=== PATIENT | male | born 1955 | race Two or more races ===

== ENCOUNTER 2024-08-16 06:02 | Inpatient (IN) | payer MEDICARE, MEDICAID ==
[~2024-08-16] VITALS: Ht 195.6 cm; Wt 106.6 kg
[2024-08-16] VITALS (14 sets, daily range): BP systolic 137–163; BP diastolic 77–101; PULSE 78–99; RESP 12–18; TEMP 97.8–98.1; O2SAT 90–99
[~2024-08-16 06:02] MED LIST: AMLO1TAB22 PO; ASPI-543 PO; CHOL50007 PO; CLOP75TA70 PO; LEVO-848 PO; NITR0.4S29 SL; PANT40T PO; SEMA0.25 SC; THIA100T10 PO; ZOLP10TA6 PO; [UNRECOGNIZED DRUG - CODE] SC
[2024-08-16] MEDS: IODIXANOL 320MG/ML 100ML BTL IV ONE ×2 (07:34→08:18)
[2024-08-16] MEDS: HEPARIN IN NS 1000Units/500mL 1,500 ML ONE (07:34)
[2024-08-16 08:12] LABS: Basophils # (auto) 0 10 ^3/uL (0-0.2); Basophils % (auto) 0.5 % (0.0-2.0); Eosinophils # (auto) 0.1 10 ^3/uL (0-0.8); Eosinophils % (auto) 1.2 % (0.0-7.0); Hematocrit 40.7 % (41.0-53.0); Hemoglobin 13.9 g/dL (13.5-17.5); Lymphocytes # (auto) 1.7 10 ^3/uL (0.4-5.4); Lymphocytes % (auto) 23.7 % (10.0-50.0); Mean Corpuscular Hemoglobin 28.1 pg (28.0-32.0); Mean Corpuscular Hgb Conc. 34.2 g/dL (32.0-36.0); Mean Corpuscular Volume 82.3 fL (80.0-100.0); Monocytes # (auto) 0.7 10 ^3/uL (0-1.3); Monocytes % (auto) 9.1 % (0.0-12.0); Neutrophils # (auto) 4.7 10 ^3/uL (1.6-8.6); Neutrophils % (auto) 65.5 % (37.0-80.0); Nucleated Red Blood Cells % 0.2 %; Platelet Count (auto) 140 10^3/uL (140-450); Red Blood Cells 4.95 10^6/uL (4.5-5.90); Red Cell Distribution Width 15.4 % (11.8-14.3); White Blood Cell 7.2 10^3/uL (4.4-10.8)
[2024-08-16 08:29] LABS: Alanine Aminotransferase 20 U/L (7-40); Albumin 4.4 g/dL (3.2-4.8); Alkaline Phosphatase 82 U/L (46-116); Anion Gap 11 (5-15); Aspartate Aminotransferase 27 U/L (13-40); Blood Urea Nitrogen 17 mg/dL (9-23); Calcium 9.3 mg/dL (8.7-10.4); Carbon Dioxide 24 mmol/L (20-31); Chloride 105 mmol/L (98-107); Glucose 136 mg/dL (74-106); Potassium 3.1 mmol/L (3.5-5.1); Sodium 140 mmol/L (136-145)
[2024-08-16 08:30] LABS: Bilirubin, Total 0.8 mg/dL (0.2-1.0); Total Protein 7.4 g/dL (5.7-8.2)
[2024-08-16] MEDS: POTASSIUM CHL 20MEQ/100ML 100 ML IV ONE (09:00)
[2024-08-16] MEDS: HEPARIN SODIUM (PORCINE) 5000 UNITS/ML 1ML VIAL ONE (09:06)
[2024-08-16] MEDS: VERAPAMIL 2.5MG/ML INJ 2ML VIAL IV ONE (09:06)
[2024-08-16] MEDS: ANGIOMAX 250 MG VIAL IV ONE ×3 (09:06→12:20)
[2024-08-16] MEDS: MIDAZOLAM HCL 2MG/2ML 2ml VIAL (1mg/ml) ONE ×3 (09:07→12:30)
[2024-08-16] MEDS: SODIUM CHL 0.9% 0 ML ONE (09:07)
[2024-08-16] MEDS: fentaNYL CITRATE 100 MCG/2 ML VL ONE ×3 (09:07→12:30)
[2024-08-16] MEDS: LIDOCAINE 2%HCL (LOCAL ANESTH.) INJ 20ML MDV ONE ×2 (09:07→12:20)
[2024-08-16] MEDS: ATROPINE SULF 1 MG/10ml SYR ONE (09:59)
[2024-08-16] MEDS: SODIUM CHL 0.9% 50 ML ONE ×2 (10:08→12:20)
[2024-08-16] MEDS: ONDANSETRON HCL 4 MG/2 ML VIAL ONE (10:29)
[2024-08-16] MEDS: CLOPIDOGREL BISULFATE 75 MG TAB ONE ×2 (11:03)
[2024-08-16] MEDS ORDERED: LABETALOL HCL 20 MG/4 ML VL IV PRN (11:30)
[2024-08-16] MEDS ORDERED: MORPHINE SULFATE INJ 2 MG/ml SYRG IV PRN (11:30)
[2024-08-16] MEDS ORDERED: NITROGLYCERIN 0.4 MG SL TAB SL PRN (11:30)
[2024-08-16] MEDS: SODIUM CHLORIDE 0.9% 1,000 ML IV SCH (13:00)
[2024-08-16] MEDS ORDERED: ALPRAZolam 0.5 MG TAB PO PRN (14:30)
[2024-08-16] MEDS: NEOMYCIN-POLYMY-DEXAMETH 0.1% OPTH(EYE) SUSP 5ML LEFTEYE SCH (18:00)
[2024-08-16] MEDS: ATORVASTATIN 20 MG TAB PO SCH (21:28)
[2024-08-16] MEDS: POTASSIUM CHL 20 Meq TABLET PO ONE (23:51)
[2024-08-17] VITALS (9 sets, daily range): BP systolic 128–151; BP diastolic 80–92; PULSE 87–99; RESP 18–20; TEMP 98.2–98.4; O2SAT 92–94
[2024-08-17] MEDS: LEVOTHYROXINE SODIUM 50 MCG TAB PO SCH (05:51)
[2024-08-17 06:09] LABS: Basophils # (auto) 0 10 ^3/uL (0-0.2); Basophils % (auto) 0.3 % (0.0-2.0); Eosinophils # (auto) 0 10 ^3/uL (0-0.8); Eosinophils % (auto) 0.3 % (0.0-7.0); Hematocrit 38.7 % (41.0-53.0); Hemoglobin 13.4 g/dL (13.5-17.5); Lymphocytes # (auto) 1.2 10 ^3/uL (0.4-5.4); Lymphocytes % (auto) 18.1 % (10.0-50.0); Mean Corpuscular Hemoglobin 28.6 pg (28.0-32.0); Mean Corpuscular Hgb Conc. 34.6 g/dL (32.0-36.0); Mean Corpuscular Volume 82.7 fL (80.0-100.0); Monocytes # (auto) 0.6 10 ^3/uL (0-1.3); Monocytes % (auto) 9.1 % (0.0-12.0); Neutrophils # (auto) 4.8 10 ^3/uL (1.6-8.6); Neutrophils % (auto) 72.2 % (37.0-80.0); Nucleated Red Blood Cells % 0.1 %; Platelet Count (auto) 118 10^3/uL (140-450); Red Blood Cells 4.68 10^6/uL (4.5-5.90); Red Cell Distribution Width 15.3 % (11.8-14.3); White Blood Cell 6.6 10^3/uL (4.4-10.8)
[2024-08-17 06:46] LABS: Alanine Aminotransferase 29 U/L (7-40); Alkaline Phosphatase 75 U/L (46-116); Anion Gap 10 (5-15); BUN/Creatinine Ratio 8.5 (10.0-20.0); Blood Urea Nitrogen 10 mg/dL (9-23); Calcium 9.1 mg/dL (8.7-10.4); Carbon Dioxide 26 mmol/L (20-31); Chloride 105 mmol/L (98-107); Glucose 134 mg/dL (74-106); LDL Cholesterol 28 mg/dL (< 100); Magnesium 1.6 mg/dL (1.6-2.6); Potassium 3.2 mmol/L (3.5-5.1); Sodium 141 mmol/L (136-145); Total Protein 6.6 g/dL (5.7-8.2); Triglycerides 176 mg/dL (< 150)
[2024-08-17 06:47] LABS: Albumin 3.9 g/dL (3.2-4.8); Aspartate Aminotransferase 151 U/L (13-40); Bilirubin, Total 0.6 mg/dL (0.2-1.0); Cholesterol 73 mg/dL (< 200); HDL Cholesterol 29 mg/dL (40-59); Phosphorus 2.8 mg/dL (2.4-5.1)
[2024-08-17] MEDS: METOPROLOL TARTRATE 50 MG TAB PO SCH (10:00)
[2024-08-17] MEDS: POTASSIUM CHL 20 Meq TABLET PO SCH (10:21)
[2024-08-17] MEDS: ASPirin 81 mg TAB PO SCH (10:22)
[2024-08-17] MEDS: CLOPIDOGREL BISULFATE 75 MG TAB PO SCH (10:22)
[2024-08-17] MEDS ORDERED: POTASSIUM CHL 20 Meq TABLET PO ONE (12:00)
[2024-08-17] MEDS ORDERED: POTASSIUM CHLORIDE 40 MEQ in SOD CHL 0.45% 1,000 ML IV SCH (13:15)
[2024-08-17] MEDS ORDERED: MAGNESIUM SULFATE 1GM/100ML 100 ML IV SCH (14:00)
[2024-08-17] MEDS ORDERED: POTASSIUM CHLORIDE 20 MEQ, LIDOCAINE 1% (LOCAL ANESTH.) 2 ML in SODIUM CHL 0.9% 100 ML IV ONE (18:00)
== END 2024-08-17 13:15 | disposition home or self-care (01) | DRG 323 ==
LOC: CATH 06:02 → TELE 11:16 → TELE-CENTR 14:40
PROVIDERS: ADMIT Specialist; ATTEND Internal Medicine
PROC: 02F03ZZ Fragmentation in Coronary Artery, One Artery, Percutaneous Approach (ICD-10-PCS; principal; 2024-08-16)
PROC: 027034Z Dilation of Coronary Artery, One Artery with Drug-eluting Intraluminal Device, Percutaneous Approach (ICD-10-PCS; 2024-08-16)
PROC: 03HY32Z Insertion of Monitoring Device into Upper Artery, Percutaneous Approach (ICD-10-PCS; 2024-08-16)
PROC: 4A023N7 Measurement of Cardiac Sampling and Pressure, Left Heart, Percutaneous Approach (ICD-10-PCS; 2024-08-16)
PROC: B211YZZ Fluoroscopy of Multiple Coronary Arteries using Other Contrast (ICD-10-PCS; 2024-08-16)
DX: I25.10 Atherosclerotic heart disease of native coronary artery without angina pectoris (principal); N17.0 Acute kidney failure with tubular necrosis; I10 Essential (primary) hypertension; E11.9 Type 2 diabetes mellitus without complications; E78.5 Hyperlipidemia, unspecified; Z82.49 Family history of ischemic heart disease and other diseases of the circulatory system; Z95.5 Presence of coronary angioplasty implant and graft
CPT/HCPCS: 36415; 71045; 80053; 80061; 83735; 84100; 84443; 85025; 92928; 92978; 93458; 99152; G0378; J2003; J2250; J2405; Q9967

== ENCOUNTER 2024-11-15 06:27 | Inpatient (IN) | payer MEDICARE, MEDICAID ==
[2024-11-13 16:24] LABS: Basophils # (auto) 0 10 ^3/uL (0-0.2); Basophils % (auto) 0.6 % (0.0-2.0); Eosinophils # (auto) 0 10 ^3/uL (0-0.8); Eosinophils % (auto) 0.9 % (0.0-7.0); Hematocrit 42.7 % (41.0-53.0); Hemoglobin 14.6 g/dL (13.5-17.5); Lymphocytes # (auto) 1.6 10 ^3/uL (0.4-5.4); Lymphocytes % (auto) 32.3 % (10.0-50.0); Mean Corpuscular Hemoglobin 27.6 pg (28.0-32.0); Mean Corpuscular Hgb Conc. 34.3 g/dL (32.0-36.0); Mean Corpuscular Volume 80.6 fL (80.0-100.0); Monocytes # (auto) 0.4 10 ^3/uL (0-1.3); Monocytes % (auto) 8.4 % (0.0-12.0); Neutrophils # (auto) 2.9 10 ^3/uL (1.6-8.6); Neutrophils % (auto) 57.8 % (37.0-80.0); Nucleated Red Blood Cells % 0.2 %; Platelet Count (auto) 114 10^3/uL (140-450); Red Cell Distribution Width 16.8 % (11.8-14.3); White Blood Cell 5.1 10^3/uL (4.4-10.8)
[2024-11-13 16:42] LABS: INR 0.97 (0.9-1.15); Partial Thromboplastin Time 25.4 SEC (24.5-34.5); Prothrombin Time 10.3 sec (9.3-11.8)
[2024-11-13 17:00] LABS: Chloride 106 mmol/L (98-107); Potassium 3.9 mmol/L (3.5-5.1); Sodium 143 mmol/L (136-145)
[2024-11-13 17:01] LABS: Anion Gap 6 (5-15); Carbon Dioxide 31 mmol/L (20-31)
[2024-11-13 17:02] LABS: Calcium 9.8 mg/dL (8.7-10.4)
[2024-11-13 17:07] LABS: BUN/Creatinine Ratio 11.1 (10.0-20.0); Blood Urea Nitrogen 15 mg/dL (9-23)
[2024-11-13 17:12] LABS: Glucose 150 mg/dL (74-106)
[2024-11-15] VITALS (14 sets, daily range): BP systolic 142–162; BP diastolic 79–105; PULSE 82–100; RESP 12–20; TEMP 97.6–98.1; O2SAT 90–98
[~2024-11-15] VITALS: Ht 195.6 cm; Wt 28.9 kg
[2024-11-15] MEDS: IODIXANOL 320MG/ML 100ML BTL IV ONE ×3 (07:20→09:38)
[2024-11-15] MEDS: ANGIOMAX 250 MG VIAL IV ONE ×2 (07:46→08:43)
[2024-11-15] MEDS: LIDOCAINE 2%HCL (LOCAL ANESTH.) INJ 20ML MDV ONE ×3 (07:46→09:41)
[2024-11-15] MEDS: fentaNYL CITRATE 100 MCG/2 ML VL ONE ×2 (07:46→09:08)
[2024-11-15] MEDS: MIDAZOLAM HCL 2MG/2ML 2ml VIAL (1mg/ml) ONE ×2 (07:46→09:09)
[2024-11-15] MEDS: SODIUM CHL 0.9% 50 ML ONE ×3 (07:46→08:59)
[2024-11-15] MEDS: TICAGRELOR 90 MG TAB ONE ×2 (09:21→09:22)
[2024-11-15] MEDS: LABETALOL HCL 5 MG/ML ML 20ML VIAL IV ONE (09:42)
[2024-11-15] MEDS ORDERED: DEXTROSE (50%) 50ML SYRG IV PRN (10:15)
[2024-11-15] MEDS ORDERED: HYDROcodone-ACET 5/325MG TAB PO PRN (10:15)
[2024-11-15] MEDS: SODIUM CHL 0.9% 500 ML IV ONE (10:15)
[2024-11-15] MEDS ORDERED: HYDROMORPHONE HCL 1 MG/ML INJ IV PRN (10:15)
[2024-11-15] MEDS: ACCU-CHEK COMFORT CURVE STRIP VI SCH (11:30)
[2024-11-15] MEDS: InsuLIN REG 1unit/0.01ml Soln (100units/ml) SC SCH (11:30)
--- NOTE | 2024-11-15 12:07 | DVHOP ---
DATE OF SURGERY: 11/15/2024 TECHNIQUE PERFORMED: * The insertion of a 7-Icelandic long arterial line from right femoral artery under fluoroscopic guidance. * Left coronary angiography. * Management of conscious sedation. * Balloon angioplasty of left obtuse marginal artery with a 2.5 x 12 mm length semi-compliant balloon. * Shockwave balloon angioplasty of obtuse marginal artery with 3.0 shockwave balloon. * Stenting and angioplasty of the obtuse marginal artery with a 3.0 x 26 mm in length [place] stent of Aptidata (stent). * Right iliofemoral artery angiography. * Arteriotomy, application of device in the right femoral artery. COMPLICATIONS: None. ASSISTANTS: Assisted by Manuel and other news production assistant are Eddie and Maribel. COMPLICATIONS: None. INDICATION: The patient has acute coronary syndrome. 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 DESCRIPTION OF PROCEDURE: Risks, benefits discussed. Counseling done. The patient was brought to catheterization lab. The patient's right groin was shaved was also been cleaned with soap and Betadine. We have also given IV Versed and fentanyl and after that, we have punctured the right femoral artery and put a 7-[place]ic long arterial line under fluoroscopic guidance. Subsequently after that, the patient was started on the Angiomax. We put an XB3.5, 6-Icelandic guiding catheter and able to engage it. Subsequently, the left coronary angiography was done. Then, we tried to put a runthrough wire, did not go well, then I put a CHOICE Extra Support wire went through very well in the obtuse marginal artery. Subsequently, we put a 2.5 x 12 mm length semi-compliant balloon. Balloon angioplasty was done into the entire mid region of the left obtuse marginal artery. Subsequently, we put a shockwave balloon 3.0 and shockwave balloon was done in entire mid region of the left proximal artery. Subsequently, we put a stent 3.0 x 26 mm length [place] stent of Aptidata, which is a W stent and the stent had been fully deployed at total of 17 atmosphere, stents. I will increase it to 3.25 mm, inflated for 31 seconds, subsequently for 21 seconds. Subsequently, the angiography was done. Result was satisfactory and there was no complication. The patient has done well. CONCLUSION: Prior to performing the procedure, * The patient's left obtuse marginal artery from the entire mid region has been narrowed in the range of 90%-95%, NILSA grade 3 flow. There is a large artery. * The post-procedure NILSA grade 3 flow, residual stenosis is 0%. No spasm, no dissection, no thrombosis. Procedure went well. PLAN OF ACTION: At this time, the patient already got Brilinta 180 mg in the clinical lab scientist in the middle of this procedure and now we are going to resume his home dose of the Plavix. Continue the aspirin, beta-odalis, cholesterol reducing medicine. I will see him back in the office in the next one day. Zoya Lua MD MP/RAY/SEGUNDO TID: [id number] RECEIPT: [id number] MTDD
[2024-11-15] MEDS: SODIUM CHLORIDE 0.9% 1,000 ML IV SCH (12:12)
[2024-11-15] MEDS: METOPROLOL TARTRATE 25 MG TAB PO SCH (14:00)
--- NOTE | 2024-11-15 22:26 | DVHHP2 ---
Admitting Diagnosis: Chest pain. History of Present Illness HPI This is a 69 year old male with a PMH of diabetes, hypertension, dyslipidemia, history of previous coronary stent noted in the left anterior descending artery, right coronary angiography, balloon angioplasty of the right coronary artery,shockwave balloon angioplasty of the proximal, mid, and distal region of the right coronary artery, stenting and angioplasty of right coronary artery, balloon angioplasty of stent region. The patient was referred back to the hospital for left coronary angiography. Patient underwent PTCA and stent of obtuse marginal artery. Procedure went well. At this time, the patient already got Brilinta 180 mg in the general laborer in the middle of this procedure. Patient will be admitted to the hospital for observation. Home Meds Reported Medications Zolpidem Tartrate (Zolpidem Tartrate) 10 Mg Tab, 1 TAB PO QPM for INSOMNIA, #30 TAB 2 Refills 08/15/24 Thiamine Hcl (VITAMIN B-1) 100 Mg Tb, 100 MG PO BID for supplement, TAB 08/15/24 Semaglutide (Wegovy) 0.25 Mg/0.5 Ml Inj, 0.25 MG SC QWEEKLY for Has not started yet/wt. loss, INJ 08/15/24 Pantoprazole Sodium Sesquihydr (Pantoprazole Sodium) 40 Mg Tab, 40 MG PO DAILY for GERD, TAB 08/15/24 Nitroglycerin (NTROSTAT SUBLINGUAL) 0.4 Mg Sl, 0.4 MG SL PRN for CHEST PAIN, TAB *MAY REPEAT EVERY 5 MINUTES X 3 TOTAL IF NO RELIEF, INITIATE ANALGESIC THERAPY. NOTIFY PHYSICIAN *Do not crush. 08/15/24 Levothyroxine Sodium (SYNTHROID TABLET) 50 Mcg Tb, 1 TAB PO DAILY for LOW THYROID, #30 TAB 5 Refills 08/15/24 Clopidogrel Bisulfate (CLOPIDOGREL) 75 Mg Tab, 75 MG PO DAILY for CHEST PAIN, MG 08/15/24 Cholecalciferol (VITAMIN D3) 5,000 Unit Cap, 5000 UNIT PO DAILY, CAP 08/15/24 Aspirin (Aspir-Low) 81 Mg Tab, 81 MG PO DAILY for CHEST PAIN, MG 08/15/24 Amlodipine Besylate (Amlodipine Besylate) 5 Mg Tab, 10 MG PO DAILY for HTN, MG 08/15/24 Alirocumab (Praluent) 150 Mg/Ml Inj, 150 MG SC [id number] for HIGH CHOLESTEROL, INJ 08/15/24 Past Medical History Patient Family History: Cardiovascular disease G8 FATHER G8 BROTHER Review of Systems Constitutional: No symptom reported Ears, Nose, & Throat: No symptom reported Eyes: No symptom reported Pulmonary/Respiratory: No symptom reported Cardiovascular: Chest Pain Gastrointestinal: No symptom reported Genitourinary: No symptom reported Musculoskeletal: No symptom reported Skin: No symptom reported Psychiatric: No symptom reported Endocrine: No symptom reported Hemotologic/Lymphatic: No symptom reported H&P Exam Vital Signs Vital Signs Date Time Temp Pulse Resp B/P (MAP) Pulse Ox O2 Delivery O2 Flow Rate FiO2 11/15/24 11:36 90 14 155/86 (109) 95 Comments GENERAL: Awake, alert, oriented. LUNGS: Clear. CARDIOVASCULAR: Heart sounds are good. ABDOMEN: Soft. Labs/Xrays Labs Test 11/15/24 10:37 11/13/24 14:05 Range/Units POC Glucose 120 H 70-106 mg/dl White Blood Count 5.1 4.4-10.8 10^3/uL Red Blood Count 5.30 4.5-5.90 10^6/uL Hemoglobin 14.6 13.5-17.5 g/dL Hematocrit 42.7 41.0-53.0 % Mean Corpuscular Volume 80.6 80.0-100.0 fL Mean Corpuscular Hemoglobin 27.6 L 28.0-32.0 pg Mean Corpuscular Hemoglobin Concent 34.3 32.0-36.0 g/dL Red Cell Distribution Width 16.8 H 11.8-14.3 % Platelet Count 114 L 140-450 10^3/uL Mean Platelet Volume 6.9 6.9-10.8 fL Neutrophils (%) (Auto) 57.8 37.0-80.0 % Lymphocytes (%) (Auto) 32.3 10.0-50.0 % Monocytes (%) (Auto) 8.4 0.0-12.0 % Eosinophils (%) (Auto) 0.9 0.0-7.0 % Basophils (%) (Auto) 0.6 0.0-2.0 % Neutrophils # (Auto) 2.9 1.6-8.6 10 ^3/uL Lymphocytes # (Auto) 1.6 0.4-5.4 10 ^3/uL Monocytes # (Auto) 0.4 0-1.3 10 ^3/uL Eosinophils # (Auto) 0 0-0.8 10 ^3/uL Basophils # (Auto) 0 0-0.2 10 ^3/uL Nucleated Red Blood Cells 0.2 % Prothrombin Time 10.3 9.3-11.8 sec Prothrombin Time INR 0.97 0.9-1.15 Activated Partial Thromboplast Time 25.4 24.5-34.5 SEC Sodium Level 143 136-145 mmol/L Potassium Level 3.9 3.5-5.1 mmol/L Chloride Level 106 98-107 mmol/L Carbon Dioxide Level 31 20-31 mmol/L Anion Gap 6 5-15 Blood Urea Nitrogen 15 9-23 mg/dL Creatinine 1.35 H 0.700-1.30 mg/dL Glomerular Filtration Rate Calc 56 >90 mL/min BUN/Creatinine Ratio 11.1 10.0-20.0 Serum Glucose 150 H 74-106 mg/dL Calcium Level 9.8 8.7-10.4 mg/dL Assessment/Plan Primary Diagnosis Chest pain. Status post PCI. Acute coronary syndrome. Critical stenosis of the left obtuse marginal artery. CAD. Diabetes. Hypertension. Dyslipidemia. Plan Admit patient to the hospital for further evaluation and treatment. Resume home dose of the Plavix. Amlodipine. Aspirin, Metoprolol. IVFs. GI prophylactics. Dilaudid for pain management. I will see him back in the office in the next one day. Additional plan as per the hospital course. A total of 45 minutes was spent reviewing the patient record, examining the patient, making a diagnostic and therapeutic plan, discussing this plan with medical personnel, following up on diagnostic studies and following the patient for clinical stability excluding any and all procedures. At least 50% of this time was spent in direct, scpb-um-lord contact. Plan discussed with: Patient TYSON CESPEDES MD Nov 15, 2024 13:50
[2024-11-16 01:00] VITALS: BP 157/87; PULSE 87; RESP 18; TEMP 98; O2SAT 96
[2024-11-16 05:00] VITALS: BP 153/102; PULSE 88; RESP 18; TEMP 99.2; O2SAT 95
[2024-11-16] MEDS: LEVOTHYROXINE SODIUM 50 MCG TAB PO SCH (06:17)
[2024-11-16] MEDS: PANTOPRAZOLE 40 MG TAB PO SCH (06:17)
[2024-11-16 08:05] VITALS: RESP 20; O2SAT 96
[2024-11-16] MEDS ORDERED: CLOPIDOGREL BISULFATE 75 MG TAB PO SCH (10:00)
[2024-11-16] MEDS ORDERED: amLODIPine BESYLATE 5 MG TAB PO SCH (10:00)
[2024-11-16] MEDS ORDERED: ASPirin 81 mg TAB PO SCH (10:00)
--- NOTE | 2024-11-16 15:44 | DVHDS2 ---
Discharge Summary Date of Admission Nov 15, 2024 at 10:03 Date of Discharge: Nov 15, 2024 Admitting Diagnosis Chest pain. Labs/Diagnostic Data: Laboratory Results Test 11/16/24 06:10 11/13/24 14:05 POC Glucose 127 mg/dl (70-106) White Blood Count 5.1 10^3/uL (4.4-10.8) Red Blood Count 5.30 10^6/uL (4.5-5.90) Hemoglobin 14.6 g/dL (13.5-17.5) Hematocrit 42.7 % (41.0-53.0) Mean Corpuscular Volume 80.6 fL (80.0-100.0) Mean Corpuscular Hemoglobin 27.6 pg (28.0-32.0) Mean Corpuscular Hemoglobin Concent 34.3 g/dL (32.0-36.0) Red Cell Distribution Width 16.8 % (11.8-14.3) Platelet Count 114 10^3/uL (140-450) Mean Platelet Volume 6.9 fL (6.9-10.8) Neutrophils (%) (Auto) 57.8 % (37.0-80.0) Lymphocytes (%) (Auto) 32.3 % (10.0-50.0) Monocytes (%) (Auto) 8.4 % (0.0-12.0) Eosinophils (%) (Auto) 0.9 % (0.0-7.0) Basophils (%) (Auto) 0.6 % (0.0-2.0) Neutrophils # (Auto) 2.9 10 ^3/uL (1.6-8.6) Lymphocytes # (Auto) 1.6 10 ^3/uL (0.4-5.4) Monocytes # (Auto) 0.4 10 ^3/uL (0-1.3) Eosinophils # (Auto) 0 10 ^3/uL (0-0.8) Basophils # (Auto) 0 10 ^3/uL (0-0.2) Nucleated Red Blood Cells 0.2 % Prothrombin Time 10.3 sec (9.3-11.8) Prothrombin Time INR 0.97 (0.9-1.15) Activated Partial Thromboplast Time 25.4 SEC (24.5-34.5) Sodium Level 143 mmol/L (136-145) Potassium Level 3.9 mmol/L (3.5-5.1) Chloride Level 106 mmol/L (98-107) Carbon Dioxide Level 31 mmol/L (20-31) Anion Gap 6 (5-15) Blood Urea Nitrogen 15 mg/dL (9-23) Creatinine 1.35 mg/dL (0.700-1.30) Glomerular Filtration Rate Calc 56 mL/min (>90) BUN/Creatinine Ratio 11.1 (10.0-20.0) Serum Glucose 150 mg/dL (74-106) Calcium Level 9.8 mg/dL (8.7-10.4) Other Laboratory Tests 11/13/24 14:05 Brief Hx & Hospital Course: Brief Hx: Please refer to H&P. Hospital Course: Patient underwent PTCA and stent of obtuse marginal artery and was admitted for observation. Patient received Aspirin, Metoprolol and Plavix. Patient received Dilaudid for pain management. I was notified by nursing staff that the patient is now going to leave AGAINST MEDICAL ADVICE. Recommended evaluation and treatment plan reviewed with patient while the nurse was present. The patient expressed a desire to leave without completing necessary workup and treatment. Patient was explained the risks of leaving AGAINST MEDICAL ADVICE. These risks include, but are not limited to: worsening condition, missed diagnosis, permanent disability and . Patient states understanding of all risks, including permanent disability and . The patient was advised to return to this or ANY emergency department at any time for further evaluation and/or treatment. The patient is alert and oriented and able to express understanding of this and is competent to make decisions for themselves. All patient questions were answered. Condition at Discharge: Stable Final Diagnosis/Problems List Chest pain. Status post PCI. Acute coronary syndrome. Critical stenosis of the left obtuse marginal artery. CAD. Diabetes. Hypertension. Dyslipidemia. Discharge Disposition: AMA Discharge Instruct/Medications Diet: Consistent carbohydrate, Cardiac 2g Na,low cholest Activity: Light activity Discharge Statement: "Patient was advised to return to the ER or call 911 if any headaches, dizziness, shortness of breath, chest pain, abdominal pain, bleeding, fevers, or worsening of medical condition. Patient was counseled about treatment plan, medications, possible side effects, patientverbalized understanding. All questions were answered to the best of my ability. This discharge took greater then 30 minutes in planning, reviewing documentation, counseling the patient, and discussing with other team members." ASSESSMENT ASSESSMENT Assessment ACUTE CORONARY SYNDROME TYSON CESPEDES MD Nov 16, 2024 11:41
== END 2024-11-16 08:27 | disposition left against medical advice (07) | DRG 324 ==
LOC: CATH 06:27 → TELE 10:03 → WEST WING 14:46
PROVIDERS: ADMIT Specialist; ATTEND Specialist
PROC: 027034Z Dilation of Coronary Artery, One Artery with Drug-eluting Intraluminal Device, Percutaneous Approach (ICD-10-PCS; principal; 2024-11-15)
PROC: 02F03ZZ Fragmentation in Coronary Artery, One Artery, Percutaneous Approach (ICD-10-PCS; 2024-11-15)
PROC: 04HY32Z Insertion of Monitoring Device into Lower Artery, Percutaneous Approach (ICD-10-PCS; 2024-11-15)
PROC: B210YZZ Fluoroscopy of Single Coronary Artery using Other Contrast (ICD-10-PCS; 2024-11-15)
DX: I25.10 Atherosclerotic heart disease of native coronary artery without angina pectoris (principal); I24.9 Acute ischemic heart disease, unspecified; E11.9 Type 2 diabetes mellitus without complications; I10 Essential (primary) hypertension; E78.5 Hyperlipidemia, unspecified; Z95.5 Presence of coronary angioplasty implant and graft; Z79.899 Other long term (current) drug therapy; Z79.82 Long term (current) use of aspirin
CPT/HCPCS: 36415; 80048; 82962; 85025; 85610; 85730; 99152; C1887; G0378; J1815; J2250; Q9967